=== PATIENT | female | born 1935 | race African-American/Black ===

== ENCOUNTER 2021-01-03 05:25 | Observation (INO) | payer MEDICARE ==
[2020-12-30 12:30] LABS: BASOPHILS % 0.7 % (0.0-1.0); EOSINOPHILS # (AUTO) 0.1 (0.0-0.4); EOSINOPHILS % 3.6 % (0.0-6.0); HEMATOCRIT 37.6 % (34.2-44.1); HEMOGLOBIN 11.8 g/dL (12.0-16.0); LYMPHOCYTES # (AUTO) 1.7 (1.0-3.2); LYMPHOCYTES % 55.9 % (18.0-39.1); MEAN CORPUSCULAR HEMOGLOBIN 27.7 pg (28-32); MEAN CORPUSCULAR HGB CONC 31.4 g/dL (31-35); MEAN CORPUSCULAR VOLUME 88.3 fL (81-99); MONOCYTES # (AUTO) 0.3 (0.2-0.8); MONOCYTES % 10.5 % (4.4-11.3); NEUTROPHILS # (AUTO) 0.9 (2.1-6.9); PLATELET COUNT 193 x10e3/uL (140-360); RED BLOOD COUNT 4.26 x10e6/uL (3.6-5.1); RED CELL DISTRIBUTION WIDTH 12.3 % (11.7-14.4)
[2020-12-30 13:04] LABS: ANION GAP 12.6 mmol/L (8-16); CALCIUM 10.2 mg/dL (8.4-10.2); CREATININE, SERUM 0.79 mg/dL (0.57-1.11); POTASSIUM 3.6 mmol/L (3.5-5.1)
[~2021-01-03] VITALS: Ht 157.5 cm; Wt 66.2 kg
[~2021-01-03 05:25] MED LIST: ALBUTEROL SULF8.5 GM INH; AMLODIPINE BESYL5 MG PO; ATORVASTATIN CA10 MG PO; AZITHROMYCIN500 MG; CLONIDINE HCL0.1 MG PO; COUMADIN2 MG PO; COUMADIN3 MG PO; ENOXAPARIN60 MG/0.6 SQ; GLIMEPIRIDE2 MG PO; GLIPIZIDE XL5 MG; GLIPIZIDE5 MG PO; HYDRALAZINE HCL10 MG PO; HYDROCHLOROTH12.5 MG; KEFLEX500 MG PO; LASIX40 MG PO; LEVAQUIN500 MG PO; LOSARTAN POTAS100 MG PO; LOSARTAN POTASS25 MG PO; METFORMIN HCL500 M2 PO; METFORMIN HCL500 MG PO; METOPROLOL; METOPROLOL TAR100 MG; PREDNISONE10 MG PO
[2021-01-03] MEDS ORDERED: GABAPENTIN 300 MG CAP ONE (06:07)
[2021-01-03] MEDS ORDERED: DEXAMETHASONE SOD PHOS 10 MG/1 ML VIAL ONE (06:07)
[2021-01-03] MEDS ORDERED: CELECOXIB 200 MG CAP ONE (06:07)
[2021-01-03] MEDS ORDERED: SODIUM CHLORIDE 0.9% 500ML 500 ML ONE (06:17)
[2021-01-03] MEDS ORDERED: Vancomycin IV 1,000 MG ONE (06:17)
[2021-01-03] MEDS ORDERED: TRANEXAMIC ACID 1,000 MG/10 ML ML ONE (06:18)
[2021-01-03 06:37] LABS: INR 1.09; PARTIAL THROMBOPLASTIN TIME 34.8 seconds (23.8-35.5); PROTHROMBIN TIME 14.3 seconds (11.9-14.5)
[2021-01-03] MEDS ORDERED: ROPIVACAINE 246.25 MG, EPINEPHRINE HCL 1:1000 1ML 0.5 MG, CLONIDINE HCL 0.08 MG, KETORO... INJ ONE ×5 (08:00)
[2021-01-03] MEDS ORDERED: ACETAMINOPHEN 650 MG SUPP PR PRN (11:00)
[2021-01-03] MEDS ORDERED: HYDROCODONE/APAP 7.5MG-325MG 1 EA TAB PO PRN (11:00)
[2021-01-03] MEDS ORDERED: KETOROLAC TROMETHAMINE 30 MG/ML VIAL IV PRN (11:00)
[2021-01-03] MEDS ORDERED: ONDANSETRON HCL INJ 2MG/ML 2ML 2 MG/ML VIAL IV PRN (11:00)
[2021-01-03] MEDS ORDERED: HYDROCODONE/APAP 5MG-325MG TAB PO PRN (11:00)
[2021-01-03] MEDS ORDERED: DIPHENHYDRAMINE HCL INJ 50 MG/ML VIAL IV PRN (11:00)
[2021-01-03] MEDS ORDERED: DOCUSATE SODIUM 100 MG CAP PO PRN (11:00)
[2021-01-03] MEDS ORDERED: SODIUM CHLORIDE 0.9% 1000ML 1,000 ML IV SCH (11:00)
[2021-01-03] MEDS ORDERED: FENTANYL CITRATE/PF 100MCG/2 ML INJ ONE (11:50)
[2021-01-03 12:17] VITALS: BP 148/67
[2021-01-03] MEDS ORDERED: ONDANSETRON HCL INJ 2MG/ML 2ML 2 MG/ML VIAL ONE (13:12)
[2021-01-03] MEDS ORDERED: KETOROLAC TROMETHAMINE 30 MG/ML VIAL ONE (13:12)
[2021-01-03] MEDS ORDERED: POVIDONE IODINE 0.05% 0.05 % ML PO ONE (13:12)
[2021-01-03] MEDS ORDERED: PROPOFOL IV EMULSION 10 MG/ML 20 ML VIAL ONE (13:12)
[2021-01-03] MEDS ORDERED: SEVOFLURANE INHAL SOLN 250 ML PEN BTL ONE (13:12)
[2021-01-03] MEDS ORDERED: LIDOCAINE HCL 2% LOCAL INJ 5 ML SDV VIAL INJ ONE (13:12)
[2021-01-03] MEDS ORDERED: ACETAMINOPHEN 1000 MG/100 ML IV PRN (14:00)
[2021-01-03 14:19] VITALS: BP 148/67
[2021-01-03 15:15] VITALS: BP 136/46
[2021-01-03] MEDS ORDERED: ASPIRIN 325 MG TAB PO SCH (17:00)
[2021-01-03] MEDS ORDERED: CELECOXIB 100 MG CAP PO SCH (17:00)
[2021-01-03] MEDS ORDERED: Cefazolin 1 GM in SODIUM CHLORIDE 0.9% 50ML 50 ML IV SCH (18:00)
[2021-01-03] MEDS ORDERED: ZOLPIDEM TARTRATE 5 MG TAB PO PRN (21:00)
== END 2021-01-03 18:44 | disposition home or self-care (01) ==
LOC: OR 05:25 → PACU V 10:50 → MED/SURG 12:10
PROVIDERS: ADMIT Specialist; ATTEND Specialist
DX: M17.12 Unilateral primary osteoarthritis, left knee (principal); E11.9 Type 2 diabetes mellitus without complications; I10 Essential (primary) hypertension; Z96.651 Presence of right artificial knee joint; Z79.84 Long term (current) use of oral hypoglycemic drugs; Z79.01 Long term (current) use of anticoagulants; Z01.812 Encounter for preprocedural laboratory examination; Z01.818 Encounter for other preprocedural examination; Z20.822 Contact with and (suspected) exposure to COVID-19
CPT/HCPCS: 27447; 36415 ×2; 71046; 73560; 80048; 82948; 85025; 85610; 85730; 86850; 86900; 86920; 97116; 97162; 97530; C1713; G0378; J0171; J0690; J1100; J1885; J2001; J2405; J2704; J2795; J3010; J3370; J7030; J7040; U0002

== ENCOUNTER → 2024-08-31 | Outpatient (REF) | payer MEDICARE ==
[2024-08-31 09:42] LABS: BASOPHILS % 0.6 % (0.0-1.0); EOSINOPHILS # (AUTO) 0.1 (0.0-0.4); EOSINOPHILS % 2.2 % (0.0-6.0); HEMATOCRIT 35.2 % (34.2-44.1); HEMOGLOBIN 10.9 g/dL (12.0-16.0); LYMPHOCYTES # (AUTO) 1.2 (1.0-3.2); LYMPHOCYTES % 36.6 % (18.0-39.1); MEAN CORPUSCULAR HEMOGLOBIN 26.7 pg (28-32); MEAN CORPUSCULAR VOLUME 86.3 fL (81-99); MONOCYTES # (AUTO) 0.5 (0.2-0.8); MONOCYTES % 16.2 % (4.4-11.3); NEUTROPHILS # (AUTO) 1.4 (2.1-6.9); NEUTROPHILS % 44.4 % (38.7-80.0); PLATELET COUNT 132 x10e3/uL (140-360); RED BLOOD COUNT 4.08 x10e6/uL (3.6-5.1); RED CELL DISTRIBUTION WIDTH 14.2 % (11.7-14.4); WHITE BLOOD COUNT 3.14 x10e3/uL (4.8-10.8)
[2024-08-31 10:09] LABS: INR 2.36; PROTHROMBIN TIME 27.6 seconds (11.9-14.5)
[2024-08-31 10:14] LABS: PARTIAL THROMBOPLASTIN TIME 47.9 seconds (23.8-35.5)
[2024-08-31 12:44] LABS: BODY FLUID APPEARANCE CLEAR; BODY FLUID COLOR YELLOW; BODY FLUID TYPE PLEURAL; RBC,BODY FLUID 1000 cells/uL; WBC,BODY FLUID 277 cells/uL
[2024-08-31 12:57] LABS: LYMPHOCYTES,BODY FLUID 77 %; MONO/MACROPHG,BODY FLUID 11 %; OTHER CELLS,BODY FLUID 12 %; TOTAL CELLS COUNTED (DIFF) 100
[2024-09-01 19:05] LABS: TOTAL PROTEIN,BODY FLUID 2.6 g/dL
== END ==
LOC: US 08:26
PROVIDERS: ATTEND Internal Medicine
DX: J91.0 Malignant pleural effusion (principal)
CPT/HCPCS: 32555; 36415; 71045; 82945; 83615; 84157; 85025; 85610; 85730; 87070; 87205; 88112; 88305; 89051

== ENCOUNTER 2024-10-24 12:57 | Inpatient (IN) | payer MEDICARE ==
[~2024-10-24] VITALS: Ht 175.3 cm; Wt 54.0 kg
[~2024-10-24 12:57] MED LIST changes: -METOPROLOL; +METOPROLOL PO
[2024-10-24 13:12] VITALS: TEMP 97.6
[2024-10-24] MEDS ORDERED: ENTRESTO 49 MG1 EACH PO (13:23)
[2024-10-24] MEDS ORDERED: ALDACTONE50 MG PO (13:23)
[2024-10-24] MEDS ORDERED: TORSEMIDE100 MG PO (13:23)
[2024-10-24] MEDS ORDERED: ELIQUIS5 MG PO (13:23)
[2024-10-24] MEDS ORDERED: AZITHROMYCIN250 MG PO (13:23)
[2024-10-24 13:50] LABS: BASOPHILS % 0.0 % (0.0-1.0); EOSINOPHILS % 0.0 % (0.0-6.0); LYMPHOCYTES % 58.4 % (18.0-39.1); MONOCYTES % 16.2 % (4.4-11.3); NEUTROPHILS % 24.8 % (38.7-80.0); RED CELL DISTRIBUTION WIDTH 13.8 % (11.7-14.4)
[2024-10-24 14:06] LABS: INR 1.5
[2024-10-24 14:13] LABS: CORONAVIRUS COVID-19 AG POSITIVE (NEGATIVE)
[2024-10-24 14:16] LABS: EST GLOMERULAR FILTRATION RATE 23.0 ML/MIN (>=60)
[2024-10-24] MEDS: SODIUM CHLORIDE 0.9% 250ML 250 ML IV ONE (14:40)
[2024-10-24 14:52] LABS: EPITHELIAL CELLS,URINE FEW /LPF; LEUKOCYTE ESTERASE ,URINE NEGATIVE (NEGATIVE); PROTEIN,URINE DIPSTICK TRACE (NEGATIVE); URINE UROBILINOGEN 0.2 mg/dL (0.2 - 1); WBC,URINE (MAN) 0-5 /HPF (0-5)
[2024-10-24] MEDS ORDERED: ONDANSETRON HCL INJ 2MG/ML 2ML 2 MG/ML VIAL IV PRN ×2 (15:45→17:30)
[2024-10-24] MEDS: SODIUM CHLORIDE 0.9% 1000ML 1,000 ML IV ONE (16:41)
[2024-10-24 17:00] VITALS: PULSE 60; RESP 18
[2024-10-24] MEDS ORDERED: HYDRALAZINE HCL 20 MG/ML VIAL IV PRN (17:30)
[2024-10-24] MEDS ORDERED: ACETAMINOPHEN 325 MG TAB PO PRN (17:30)
[2024-10-24] MEDS ORDERED: POTASSIUM CHLORIDE 20 MEQ TAB CR PO PRN (17:30)
[2024-10-24] MEDS ORDERED: DEXTROSE 50% SYRINGE 50 ML IV PRN ×2 (17:30)
[2024-10-24] MEDS ORDERED: MELATONIN 5 MG TABLET PO PRN (17:30)
[2024-10-24] MEDS ORDERED: LIDOCAINE 4% PATCH TP PRN (17:30)
[2024-10-24] MEDS ORDERED: BENZONATATE 100 MG CAP PO PRN (17:30)
[2024-10-24] MEDS ORDERED: SIMETHICONE 80 MG CHEW PO PRN (17:30)
[2024-10-24] MEDS ORDERED: DIPHENHYDRAMINE HCL 25 MG CAP PO PRN (17:30)
[2024-10-24] MEDS ORDERED: ALBUTEROL/IPRATROPIUM 3 ML NEB NEB PRN (17:30)
[2024-10-24] MEDS: SODIUM CHLORIDE 0.9% 1000ML 1,000 ML IV SCH (18:44)
[2024-10-24 21:21] VITALS: BP 124/62; PULSE 60; RESP 18; TEMP 97.6; O2SAT 100
[2024-10-24 21:25] VITALS: BP 124/62; PULSE 60; RESP 18; TEMP 97.6; O2SAT 100
[2024-10-24] MEDS: INSULIN LISPRO 100 UNIT/1 ML 3ML VIAL SQ SCH (21:31)
[2024-10-24] MEDS ORDERED: METOPROLOL SUCC25 MG PO (22:12)
[2024-10-24] MEDS ORDERED: SPIRONOLACTONE25 MG PO (22:12)
[2024-10-24] MEDS: APIXABAN 5 MG TABLET PO SCH (22:57)
[2024-10-25] VITALS (9 sets, daily range): BP systolic 101–141; BP diastolic 46–66; PULSE 60–95; RESP 16–18; TEMP 97.2–97.7; O2SAT 95–100
[2024-10-25 05:52] LABS: BASOPHILS % 0.4 % (0.0-1.0); EOSINOPHILS % 1.6 % (0.0-6.0); LYMPHOCYTES % 48.4 % (18.0-39.1); MONOCYTES % 13.6 % (4.4-11.3); NEUTROPHILS % 35.6 % (38.7-80.0); RED CELL DISTRIBUTION WIDTH 13.5 % (11.7-14.4)
[2024-10-25 06:21] LABS: CHOL/HDL RATIO 3.6 (3.0-3.6); EST GLOMERULAR FILTRATION RATE 34.0 ML/MIN (>=60); LDL CHOLESTEROL 70.0 MG/DL (60-130)
[2024-10-25] MEDS: Vancomycin IV 1 GM in SODIUM CHLORIDE 0.9% 250ML 250 ML IV SCH (10:51)
[2024-10-25] MEDS: PANTOPRAZOLE SOD 40 MG TABEC PO SCH (10:52)
[2024-10-25 11:40] LABS: BAND NEUTROPHILS % (MANUAL) 15 %; EOSINOPHILS % (MANUAL) 2 % (0-7); LYMPHOCYTES % (MANUAL) 47 % (19-48); MONOCYTES % (MANUAL) 5 % (3.4-9.0); NEUTROPHILS % (MANUAL) 25 % (40-74); REACTIVE LYMPHOCYTES 7
[2024-10-25 11:46] LABS: PLATELET MORPHOLOGY COMMENT NORMAL
[2024-10-25 11:47] LABS: PLATELET ESTIMATE SLIGHTLY DECREASED
[2024-10-25 11:50] LABS: RBC MORPHOLOGY COMMENT NORMAL; ROULEAU FEW
[2024-10-25] MEDS: SACUBITRIL49MG/VALSARTAN51MG 1 EACH TABLET PO SCH (16:53)
[2024-10-25] MEDS: METOPROLOL SUCCINATE 25 MG TAB XL PO SCH (16:53)
[2024-10-25] MEDS ORDERED: ENOXAPARIN SOD INJ 40 MG/0.4 ML SYR SC SCH (17:00)
[2024-10-25] MEDS ORDERED: ATORVASTATIN 10 MG TAB PO SCH (21:00)
[2024-10-26] VITALS (8 sets, daily range): BP systolic 107–159; BP diastolic 54–67; PULSE 53–76; RESP 16–20; TEMP 97.2–97.6; O2SAT 95–100
[2024-10-26 07:51] LABS: LYMPHOCYTES % (MANUAL) 59 % (19-48); MONOCYTES % (MANUAL) 21 % (3.4-9.0); NEUTROPHILS % (MANUAL) 20 % (40-74); PLATELET ESTIMATE SLIGHTLY DECREASED
[2024-10-26 07:52] LABS: PLATELET MORPHOLOGY COMMENT NORMAL
[2024-10-26 08:48] LABS: BASOPHILS % 0.4 % (0.0-1.0); EOSINOPHILS % 1.2 % (0.0-6.0); LYMPHOCYTES % 52.5 % (18.0-39.1); MONOCYTES % 10.7 % (4.4-11.3); NEUTROPHILS % 34.8 % (38.7-80.0); RED CELL DISTRIBUTION WIDTH 13.5 % (11.7-14.4)
[2024-10-26 09:42] LABS: EST GLOMERULAR FILTRATION RATE 64.0 ML/MIN (>=60)
[2024-10-26 12:02] LABS: BASOPHILS % (MANUAL) 1 % (0-1.5); EOSINOPHILS % (MANUAL) 2 % (0-7); LYMPHOCYTES % (MANUAL) 50 % (19-48); MONOCYTES % (MANUAL) 11 % (3.4-9.0); NEUTROPHILS % (MANUAL) 36 % (40-74); PLATELET ESTIMATE SLIGHTLY DECREASED; PLATELET MORPHOLOGY COMMENT NORMAL
[2024-10-26] MEDS: BENZONATATE 100 MG CAP PO SCH (13:09)
[2024-10-26] MEDS: APIXABAN 2.5 MG TABLET PO SCH (17:42)
[2024-10-27 03:03] VITALS: BP 122/50; PULSE 61; RESP 16; TEMP 97.3; O2SAT 96
[2024-10-27 07:23] LABS: BASOPHILS % 0.5 % (0.0-1.0); EOSINOPHILS % 4.1 % (0.0-6.0); LYMPHOCYTES % 60.8 % (18.0-39.1); MONOCYTES % 12.0 % (4.4-11.3); NEUTROPHILS % 22.6 % (38.7-80.0); RED CELL DISTRIBUTION WIDTH 13.4 % (11.7-14.4)
[2024-10-27 07:35] VITALS: PULSE 65; RESP 17; O2SAT 97
[2024-10-27 07:58] VITALS: BP 139/61; PULSE 60; RESP 17; TEMP 97.2; O2SAT 100
[2024-10-27 08:03] LABS: EST GLOMERULAR FILTRATION RATE 61.0 ML/MIN (>=60)
[2024-10-27 10:44] LABS: EOSINOPHILS % (MANUAL) 1 % (0-7); LYMPHOCYTES % (MANUAL) 70 % (19-48); NEUTROPHILS % (MANUAL) 26 % (40-74); PLATELET ESTIMATE ADEQUATE; PLATELET MORPHOLOGY COMMENT NORMAL; REACTIVE LYMPHOCYTES 3
[2024-10-27] MEDS ORDERED: BENZONATATE100 MG PO (11:00)
[2024-10-27] MEDS ORDERED: ELIQUIS2.5 MG PO (11:00)
[2024-10-27] MEDS ORDERED: ONDANSETRON HCL 4 MG ORAL DISINTEGRATING TAB PO PRN (11:30)
[2024-10-27 11:55] VITALS: BP 118/64; PULSE 61; RESP 18; TEMP 97; O2SAT 99
== END 2024-10-27 15:45 | disposition home or self-care (01) | DRG 177 ==
LOC: ER 13:14 → ERHOLD 15:44 → MED/SURG2 18:23
PROVIDERS: ADMIT Internal Medicine; ATTEND Internal Medicine
DX: U07.1 COVID-19 (principal); J12.82 Pneumonia due to coronavirus disease 2019; L89.623 Pressure ulcer of left heel, stage 3; N17.9 Acute kidney failure, unspecified; E87.1 Hypo-osmolality and hyponatremia; M62.82 Rhabdomyolysis; R78.81 Bacteremia; I50.42 Chronic combined systolic (congestive) and diastolic (congestive) heart failure; D61.818 Other pancytopenia; E86.0 Dehydration; E11.9 Type 2 diabetes mellitus without complications; E78.5 Hyperlipidemia, unspecified; I95.9 Hypotension, unspecified; L89.629 Pressure ulcer of left heel, unspecified stage; R53.81 Other malaise; I11.0 Hypertensive heart disease with heart failure; I73.9 Peripheral vascular disease, unspecified; I48.91 Unspecified atrial fibrillation; M19.90 Unspecified osteoarthritis, unspecified site; R41.82 Altered mental status, unspecified; B95.7 Other staphylococcus as the cause of diseases classified elsewhere; Z96.653 Presence of artificial knee joint, bilateral; Z95.810 Presence of automatic (implantable) cardiac defibrillator; Z79.84 Long term (current) use of oral hypoglycemic drugs; Z79.01 Long term (current) use of anticoagulants
CPT/HCPCS: 36415; 70450; 71045; 80053; 80061; 81001; 82550; 82948; 83690; 83735; 83880; 84443; 84484; 85025; 85610; 85730; 87040; 87071; 87205; 93005; 94799; 96372; 99252; 99284; J2470; J3373; J7030; J7050

== ENCOUNTER → 2024-11-03 | Outpatient (REF) | payer MEDICARE ==
[~2024-11-03] MED LIST changes: +ALDACTONE50 MG PO; +AZITHROMYCIN250 MG PO; +BENZONATATE100 MG PO; +ELIQUIS2.5 MG PO; +ELIQUIS5 MG PO; +ENTRESTO 49 MG1 EACH PO; +METOPROLOL SUCC25 MG PO; +SPIRONOLACTONE25 MG PO; +TORSEMIDE100 MG PO
== END ==
LOC: RAD 11:09
PROVIDERS: ATTEND Internal Medicine
DX: R05.9 Cough, unspecified (principal); Z86.16 Personal history of COVID-19
CPT/HCPCS: 71046

== ENCOUNTER 2024-11-05 14:42 | Observation (INO) | payer MEDICARE ==
[~2024-11-05] VITALS: Ht 154.9 cm; Wt 59.0 kg
[2024-11-05 15:20] VITALS: PULSE 59; RESP 18; TEMP 97.2
[2024-11-05 16:11] LABS: EST GLOMERULAR FILTRATION RATE 68.0 ML/MIN (>=60)
[2024-11-05 16:57] LABS: BASOPHILS % 0.4 % (0.0-1.0); EOSINOPHILS % 1.8 % (0.0-6.0); LYMPHOCYTES % 37.2 % (18.0-39.1); MONOCYTES % 10.1 % (4.4-11.3); NEUTROPHILS % 50.5 % (38.7-80.0); RED CELL DISTRIBUTION WIDTH 13.8 % (11.7-14.4)
[2024-11-05] MEDS ORDERED: SODIUM CHLORIDE FLUSH 10 ML SYR INJ PRN (17:00)
[2024-11-05] MEDS ORDERED: SODIUM CHLORIDE 0.9% 1000ML 1,000 ML ONE (20:06)
[2024-11-05] MEDS ORDERED: FUROSEMIDE INJ 10 MG/ML 2 ML VIAL ONE (20:06)
[2024-11-05] MEDS: SODIUM CHLORIDE 0.9% 1000ML 1,000 ML IV ONE (20:17)
[2024-11-05] MEDS: FUROSEMIDE INJ 10 MG/ML 2 ML VIAL IV ONE (20:17)
[2024-11-05] MEDS ORDERED: MELATONIN 5 MG TABLET PO PRN (21:15)
[2024-11-05] MEDS ORDERED: ONDANSETRON HCL 4 MG ORAL DISINTEGRATING TAB PO PRN (21:15)
[2024-11-05] MEDS ORDERED: FAMOTIDINE 20 MG TAB PO PRN (21:15)
[2024-11-05] MEDS: ATORVASTATIN 10 MG TAB PO SCH (22:44)
[2024-11-05] MEDS: SACUBITRIL49MG/VALSARTAN51MG 1 EACH TABLET PO SCH (22:44)
[2024-11-05] MEDS: APIXABAN 2.5 MG TABLET PO SCH (22:44)
[2024-11-05] MEDS: METOPROLOL SUCCINATE 25 MG TAB XL PO SCH (22:44)
[2024-11-05 22:55] VITALS: BP 162/60; PULSE 61; RESP 20; TEMP 98; O2SAT 97
[2024-11-05 22:58] VITALS: BP 162/60; PULSE 61; RESP 16; TEMP 97.5; O2SAT 100
[2024-11-05 23:00] VITALS: BP 162/60; PULSE 61; RESP 16; TEMP 97.5; O2SAT 100
[2024-11-06] MEDS: ACETAMINOPHEN 325 MG TAB PO PRN (04:01)
[2024-11-06 06:50] LABS: BASOPHILS % 0.9 % (0.0-1.0); EOSINOPHILS % 3.0 % (0.0-6.0); LYMPHOCYTES % 39.1 % (18.0-39.1); MONOCYTES % 15.7 % (4.4-11.3); NEUTROPHILS % 40.9 % (38.7-80.0); RED CELL DISTRIBUTION WIDTH 13.7 % (11.7-14.4)
[2024-11-06 06:59] LABS: EST GLOMERULAR FILTRATION RATE 78.0 ML/MIN (>=60)
[2024-11-06 09:00] VITALS: BP 162/60; PULSE 61; RESP 16; TEMP 97.5; O2SAT 100
[2024-11-06] MEDS: METFORMIN HCL 500 MG TAB PO SCH (09:15)
[2024-11-06 09:55] VITALS: BP 171/76; PULSE 60; RESP 20; TEMP 97.3; O2SAT 100
[2024-11-06 12:15] VITALS: BP 163/64; PULSE 59; RESP 18; TEMP 97.9; O2SAT 100
== END 2024-11-06 15:15 | disposition home or self-care (01) ==
LOC: ER 15:20 → ERHOLD 16:53 → MED/SURG2 22:21
PROVIDERS: ADMIT Family Medicine Adult Medicine; ATTEND Family Medicine Adult Medicine
DX: E87.5 Hyperkalemia (principal); T50.0X5A Adverse effect of mineralocorticoids and their antagonists, initial encounter; Y92.019 Unspecified place in single-family (private) house as the place of occurrence of the external cause; I11.0 Hypertensive heart disease with heart failure; I50.32 Chronic diastolic (congestive) heart failure; Z95.0 Presence of cardiac pacemaker; E78.5 Hyperlipidemia, unspecified; E11.621 Type 2 diabetes mellitus with foot ulcer; L97.429 Non-pressure chronic ulcer of left heel and midfoot with unspecified severity; Z79.84 Long term (current) use of oral hypoglycemic drugs; I48.91 Unspecified atrial fibrillation; Z79.01 Long term (current) use of anticoagulants; I73.9 Peripheral vascular disease, unspecified; D64.9 Anemia, unspecified; D72.819 Decreased white blood cell count, unspecified
CPT/HCPCS: 36415 ×2; 80048; 80053; 82948 ×2; 85025 ×2; 93005; 99284; G0378 ×2; J1938; J7030

== ENCOUNTER → 2024-11-23 | Outpatient (REF) | payer MEDICARE | LOC: RAD 12:19 | PROVIDERS: ATTEND Internal Medicine | DX: R05.9 Cough, unspecified (principal); Z86.16 Personal history of COVID-19 | CPT/HCPCS: 71046 ==

== ENCOUNTER → 2024-12-04 | Outpatient (REF) | payer MEDICARE | LOC: CT 11:32 | PROVIDERS: ATTEND Internal Medicine | DX: M25.511 Pain in right shoulder (principal); M54.12 Radiculopathy, cervical region; R05.3 Chronic cough | CPT/HCPCS: 71250 ==

== ENCOUNTER → 2025-01-15 | Outpatient (REF) | payer MEDICARE ==
[~2025-01-15] MED LIST changes: +ALBUTEROL SULF 0.083% NEB SOLN 3 ML NEB ONE
== END ==
LOC: RESP 09:41
PROVIDERS: ATTEND Nurse Practitioner Family
DX: R05.3 Chronic cough (principal); I48.91 Unspecified atrial fibrillation; I50.9 Heart failure, unspecified; J47.9 Bronchiectasis, uncomplicated
CPT/HCPCS: 94060; 94727; 94729